=== PATIENT | male | born 1985 | race Caucasian/White ===

== ENCOUNTER 2023-07-29 07:52 | Outpatient (CLI) | payer BC, SELFPAY ==
[2023-07-29 08:32] LABS: Basophils Absolute Auto 0.08 K/mm3 (0.00-0.10); Eosinophils Absolute Auto 0.24 K/mm3 (0.02-0.50); Eosinophils Percent Auto 2.9 % (1.0-6.0); Hematocrit 39.8 % (40.0-54.0); Hemoglobin 13.1 g/dL (14.0-18.0); Immature Granulocyte Absolute 0.02 K/mm3 (0.00-0.00); Immature Granulocyte Percent A 0.2 % (0.0-0.0); Lymphocytes Absolute Auto 2.39 K/mm3 (1.10-4.50); Mean Corpuscular HGB Conc 32.9 g/dL (32-36); Mean Corpuscular Hemoglobin 30.7 pg (27.0-31.0); Mean Corpuscular Volume 93.2 fL (78.0-102.0); Mean Platelet Volume 9.5 fl (8.7-11.0); Monocytes Absolute Auto 0.47 K/mm3 (0.10-0.90); Monocytes Percent Auto 5.7 % (2.0-11.0); Neutrophils Absolute Auto 5.04 K/mm3 (1.70-7.20); Neutrophils Percent Auto 61.2 % (50.0-70.0); Platelet Count Result 263 K/mm3 (150-420); Red Blood Count 4.27 M/mm3 (4.70-6.10); Red Cell Distribution Width 12.8 % (11.6-14.4); White Blood Count 8.2 K/mm3 (4.8-10.8)
[2023-07-29 08:39] LABS: Creatinine Urine 25.82 mg/dL (40-278); Total Protein Urine Random < 6.0 mg/dL (0.0-11.9); Ur Ttl Prot Creatinine Ratio 0.23 mg/mg (0-0.20)
[2023-07-29 08:52] LABS: Appearance Urine Clear (Clear); Bilirubin Urine Negative (Negative); Blood Urine Negative (Negative); Color Urine Light Yellow (Yellow); Glucose Urine UA Negative (Negative); Ketones Urine Negative (Negative); Leukocyte Esterase Ur Negative (Negative); Nitrate Urine Negative (Negative); Protein Urine Negative (Negative); Specific Grav Ur <= 1.005 (1.010-1.020); Urobilinogen Urine 0.2 mg/dL (0.2-1.0)
[2023-07-29 09:00] LABS: Hemoglobin A1C 5.2 % (<5.7)
[2023-07-29 09:04] LABS: Alanine Aminotransferase 30 U/L (16-63); Albumin Level 3.6 g/dL (3.4-5.0); Alkaline Phosphatase 133 U/L (46-116); Anion Gap 9 mmol/L (4-12); Aspartate Amino Transferase 18 U/L (15-37); Bilirubin Direct 0.1 mg/dL (0-0.2); Bilirubin,Total 0.3 mg/dL (0.00-1.00); Blood Urea Nitrogen 30 mg/dL (7-18); Calcium 8.7 mg/dL (8.5-10.1); Carbon Dioxide 29 mmol/L (21-32); Chloride 104 mmol/L (98-108); Estimated Glomerular Filt Rate 33; Free T4 Free Thyroxine 0.57 ng/dL (0.76-1.46); Glucose 93 mg/dL (70-99); Iron 50 ug/dL (65-175); Osmolality Calculated 300 mOsm/kg (285-295); Percent Iron Saturation 19 % (12-57); Potassium 4.7 mmol/L (3.5-5.1); Sodium 142 mmol/L (136-145); Thyroid Stimulating Hormone 2.93 uIU/mL (0.36-3.74); Total Protein 7.1 g/dL (6.4-8.2)
[2023-07-29 09:26] LABS: Add Urine Microscopic? NO
[2023-07-30 16:09] LABS: Parathyroid Intact 118 pg/mL (16-77)
[2023-07-31 02:23] LABS: Vitamin D 25 Hydroxy 33 ng/mL (30-100)
== END 2023-07-29 07:53 | disposition home or self-care (01) ==
LOC: CHSLAB 07:59
PROVIDERS: Visit Provider Internal Medicine Nephrology
DX: N18.32 Chronic kidney disease, stage 3b (principal); Q61.2 Polycystic kidney, adult type; I10 Essential (primary) hypertension
CPT/HCPCS: 36415; 80053; 81003; 82248; 82306; 82570; 83036; 83540; 83550; 83970; 84100; 84156; 84439; 84443; 84550; 85025

== ENCOUNTER 2023-07-30 09:08 | Outpatient (CLI) | payer BC, SELFPAY ==
[2023-07-30 09:24] LABS: Collection Time Urine 24 HOURS
[2023-07-30 09:36] LABS: Creatinine Clearance Urine 36.4 ml/min (97-137); Creatinine Urine 52.49 mg/dL (40-278); Patient Weight 230 Lbs; Serum Creat 2.23; Total Volume 24 Hour Urine 2900 ml
== END 2023-07-30 09:09 | disposition home or self-care (01) ==
LOC: CHSLAB 09:14
PROVIDERS: Visit Provider Internal Medicine Nephrology
DX: N18.32 Chronic kidney disease, stage 3b (principal); Q61.2 Polycystic kidney, adult type
CPT/HCPCS: 82575